=== PATIENT | male | born 1970 | race Caucasian/White ===

== ENCOUNTER → 2017-02-20 | Outpatient (CLI) | payer OTHER ==
[~2017-02-20] MED LIST: SUCCINYLCHOLINE CHLORIDE 200 MG/10 ML VIAL IV PUSH ONE
== END ==
LOC: HEDF 06:09
DX: S01.81XA Laceration without foreign body of other part of head, initial encounter (principal); R41.82 Altered mental status, unspecified; V27.0XXA Motorcycle driver injured in collision with fixed or stationary object in nontraffic accident, initial encounter
CPT/HCPCS: A0431; A0436; J0330

== ENCOUNTER 2017-08-08 14:42 | Emergency (ER) | payer OTHER ==
[~2017-08-08] VITALS: Ht 180.3 cm; Wt 100.0 kg
[~2017-08-08 14:42] MED LIST changes: +AMAN100T PO; +LOSA25TA PO; +QUET1TAB10; +QUET1TAB8; +SENN8.6T19; -SUCCINYLCHOLINE CHLORIDE 200 MG/10 ML VIAL IV PUSH ONE
[2017-08-08 15:16] VITALS: BP 139/93; PULSE 85; RESP 18; TEMP 97.4; O2SAT 95
--- NOTE | 2017-08-08 15:41 | PD ---
HPI Chief Complaint: Psychiatric Symptoms Time Seen by Provider: 15:11 Travel History International Travel<30 days: No Contact w/Intl Traveler<30days: No Traveled to known affect area: No History of Present Illness HPI 46-year-old male presents under Hall act initiated by the [employer]. According to his paperwork the patient became upset and "lashed out" towards his and son after not being able to drive. For this reason he was placed under Hall act. The patient reports that he had an argument with his and someone called the police. He denies any desire to hurt himself or anyone else. He denies any psychiatric history. He denies any illicit drug use. He denies any alcohol use. He has no medical complaints at this time. [facility]LY [facility] Past Medical History Anxiety: No Depression: No Cancer: No Cardiovascular Problems: No Cerebrovascular Accident: No Diminished Hearing: No Endocrine: No Gastrointestinal Disorders: Yes Genitourinary: No Immune Disorder: No Musculoskeletal: No Neurologic: Yes Psychiatric: Yes Reproductive: No Respiratory: No Migraines: No Seizures: No Tetanus Vaccination: Unknown Influenza Vaccination: No Past Surgical History Appendectomy: Yes Other Surgery: No Social History Alcohol Use: No Tobacco Use: Yes (1 ppd) Substance Use: No (hx of debbie "a long time ago") Allergies-Medications (Allergen,Severity, Reaction): Coded Allergies: No Known Allergies (Unverified Adverse Reaction, Unknown, 06/22/17) Reported Meds & Prescriptions Reported Meds & Active Scripts Active Reported Amantadine (Amantadine HCl) 100 Mg Tab PO DAILY Quetiapine (Quetiapine Fumarate) 300 Mg Tab Quetiapine (Quetiapine Fumarate) 100 Mg Tab Losartan (Losartan Potassium) 25 Mg Tab 25 Mg PO DAILY Review of Systems Except as stated in HPI: all other systems reviewed are Neg Physical Exam Narrative GENERAL: Well-developed well-nourished male in no acute distress SKIN: Warm and dry. HEAD: Atraumatic. Normocephalic. EYES: Pupils equal and round. No scleral icterus. No injection or drainage. ENT: No nasal bleeding or discharge. Mucous membranes pink and moist. NECK: Trachea midline. No JVD. CARDIOVASCULAR: Regular rate and rhythm. No murmur appreciated. RESPIRATORY: No accessory muscle use. Clear to auscultation. Breath sounds equal bilaterally. GASTROINTESTINAL: Abdomen soft, non-tender, nondistended. Hepatic and splenic margins not palpable. MUSCULOSKELETAL: No obvious deformities. No clubbing. No cyanosis. No edema. NEUROLOGICAL: Awake and alert. No obvious cranial nerve deficits. Motor grossly within normal limits. Normal speech. PSYCHIATRIC: Appropriate mood and affect; insight and judgment normal. Data Data Last Documented VS Vital Signs Date Time Temp Pulse Resp B/P (MAP) Pulse Ox O2 Delivery O2 Flow Rate FiO2 08/08/17 15:16 97.4 85 18 139/93 (108) 95 Room Air Orders Orders Complete Blood Count With Diff (08/08/17 15:06) Comprehensive Metabolic Panel (08/08/17 15:06) Psych Screen (08/08/17 15:06) Drug Screen, Random Urine (08/08/17 15:06) Diet Regular Basic (08/08/17 Dinner) Ed Discharge Order (08/08/17 16:38) Labs Laboratory Tests Test 08/08/17 14:50 White Blood Count 11.1 TH/MM3 Red Blood Count 6.23 MIL/MM3 Hemoglobin 19.0 GM/DL Hematocrit 54.2 % Mean Corpuscular Volume 86.9 FL Mean Corpuscular Hemoglobin 30.6 PG Mean Corpuscular Hemoglobin Concent 35.2 % Red Cell Distribution Width 14.1 % Platelet Count 251 TH/MM3 Mean Platelet Volume 7.4 FL Neutrophils (%) (Auto) 73.5 % Lymphocytes (%) (Auto) 17.2 % Monocytes (%) (Auto) 6.4 % Eosinophils (%) (Auto) 2.1 % Basophils (%) (Auto) 0.8 % Neutrophils # (Auto) 8.2 TH/MM3 Lymphocytes # (Auto) 1.9 TH/MM3 Monocytes # (Auto) 0.7 TH/MM3 Eosinophils # (Auto) 0.2 TH/MM3 Basophils # (Auto) 0.1 TH/MM3 CBC Comment DIFF FINAL Differential Comment MDM Medical Decision Making Medical Screen Exam Complete: Yes Emergency Medical Condition: Yes Medical Record Reviewed: Yes Differential Diagnosis Social disturbance, acute psychosis, adjustment reaction, substance induced mood disorder Narrative Course 46-year-old male presents under Hall act for psychiatric evaluation. Mental health screening discussed with the patient. Psychiatric screen ordered. The Hall act was lifted by the psychiatrist. He has no medical issues none warrant additional hospitalization. He is stable for discharge. Diagnosis Primary Impression: Medical clearance for psychiatric admission Med/Other Pt SpecificInfo: No Change to Meds Disposition: 01 DISCHARGE HOME Condition: Stable Tulio Rosario Aug 08, 2017 15:41
[2017-08-08 16:12] LABS: AUTOMATED NEUTROPHIL # 8.2 TH/MM3 (1.8-7.7); BASOPHIL # 0.1 TH/MM3 (0-0.2); BASOPHIL % 0.8 % (0.0-2.0); EOSINOPHIL # 0.2 TH/MM3 (0-0.4); EOSINOPHIL % 2.1 % (0.0-4.0); HEMATOCRIT 54.2 % (39.0-51.0); LYMPH % 17.2 % (9.0-44.0); LYMPHOCYTE # 1.9 TH/MM3 (1.0-4.8); MEAN CELL VOLUME 86.9 FL (80.0-100.0); MEAN CORPUSCULAR HEMOGLOBIN 30.6 PG (27.0-34.0); MEAN CORPUSCULAR HGB CONC 35.2 % (32.0-36.0); MEAN PLATELET VOLUME 7.4 FL (7.0-11.0); MONO % 6.4 % (0.0-8.0); MONOCYTE # 0.7 TH/MM3 (0-0.9); NEUT % 73.5 % (16.0-70.0); PLATELET COUNT 251 TH/MM3 (150-450); RED BLOOD COUNT 6.23 MIL/MM3 (4.50-5.90); RED CELL DISTRIBUTION WIDTH 14.1 % (11.6-17.2); WHITE BLOOD COUNT 11.1 TH/MM3 (4.0-11.0)
[2017-08-08 16:39] LABS: ALBUMIN 4.1 GM/DL (3.4-5.0); AST (GOT) 17 U/L (15-37); BLOOD UREA NITROGEN 15 MG/DL (7-18); CALCIUM 9.2 MG/DL (8.5-10.1); CHLORIDE 106 MEQ/L (98-107); GLOMERULAR FILTRATION RATE 65 ML/MIN (>89); GLUCOSE,RANDOM 103 MG/DL (74-106); SODIUM (NA) 137 MEQ/L (136-145)
--- NOTE | 2017-08-08 16:39 | PD ---
History of Present Illness Chief Complaint: Psychiatric Symptoms Time Seen by Provider: 16:30 Travel History International Travel<30 Days: No Contact w/Intl Traveler<30days: No Known affected area: No Legal Status Legal Status: Hall Act Hall Act Signed By: Lito Rowland History of Present Illness: 46-year-old male seen under a Hall act for what appears to be an inadequate reason. Patient is calm and pleasant. He denies any suicidal or homicidal ideation, plan or intent. He has no psychotic symptoms and his cognition is baseline. 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 PFSH Past Medical History Anxiety: No Depression: No Cancer: No Cardiovascular Problems: No Cerebrovascular Accident: No Diminished Hearing: No Endocrine: No Gastrointestinal Disorders: Yes Genitourinary: No Immune Disorder: No Musculoskeletal: No Neurologic: Yes Psychiatric: Yes Reproductive: No Respiratory: No Migraines: No Seizures: No Tetanus Vaccination: Unknown Influenza Vaccination: No Past Surgical History Appendectomy: Yes Other Surgery: No Psychiatric History Psychiatric History Hx Psychiatric Treatment: Denied. History of Inpatient Treatment: No Guns or firearms in home: No Social History Hx Alcohol Use: No Hx Tobacco Use: Yes (1 ppd) Hx Substance Use: No (hx of debbie "a long time ago") Hx of Substance Use Treatment: No Allergies-Medications (Allergen,Severity, Reaction): Coded Allergies: No Known Allergies (Unverified Adverse Reaction, Unknown, 06/22/17) Reported Meds & Prescriptions Reported Meds & Active Scripts Active Reported Amantadine (Amantadine HCl) 100 Mg Tab PO DAILY Quetiapine (Quetiapine Fumarate) 300 Mg Tab Quetiapine (Quetiapine Fumarate) 100 Mg Tab Losartan (Losartan Potassium) 25 Mg Tab 25 Mg PO DAILY Review of Systems Except as stated in HPI: all other systems reviewed are Neg Mental Status Examination Appearance: Appropriate Consciousness: Alert Orientation: x4 Motor Activity: Normal gait Speech: Speech impediment Language: Adequate Fund of Knowledge: Adequate Attention and Concentration: Adequate Memory: Unremarkable Mood: Appropriate Affect: Appropriate Thought Process & Associations: Intact Thought Content: Appropriate Hallucination Type: None Delusion Type: None Suicidal Ideation: No Suicidal Plan: No Suicidal Intention: No Homicidal Ideation: No Homicidal Plan: No Homicidal Intention: No Insight: Adequate Judgment: Adequate MDM Medical Decision Making Medical Record Reviewed: Yes Assessment/Plan Patient interviewed it bedside. Electronic medical record reviewed. Case discussed with nurse Becky. Patient is not felt to meet Hall act criteria. He does not meet criteria for involuntary psychiatric hospitalization and he would like to go home. He remarks "I've never been in trouble in my life!" Orders Orders Complete Blood Count With Diff (08/08/17 15:06) Comprehensive Metabolic Panel (08/08/17 15:06) Psych Screen (08/08/17 15:06) Drug Screen, Random Urine (08/08/17 15:06) Diet Regular Basic (08/08/17 Dinner) Results Vital Signs Date Time Temp Pulse Resp B/P (MAP) Pulse Ox O2 Delivery O2 Flow Rate FiO2 08/08/17 15:16 97.4 85 18 139/93 (108) 95 Room Air Laboratory Tests Test 08/08/17 14:50 White Blood Count 11.1 Red Blood Count 6.23 Hemoglobin 19.0 Hematocrit 54.2 Mean Corpuscular Volume 86.9 Mean Corpuscular Hemoglobin 30.6 Mean Corpuscular Hemoglobin Concent 35.2 Red Cell Distribution Width 14.1 Platelet Count 251 Mean Platelet Volume 7.4 Neutrophils (%) (Auto) 73.5 Lymphocytes (%) (Auto) 17.2 Monocytes (%) (Auto) 6.4 Eosinophils (%) (Auto) 2.1 Basophils (%) (Auto) 0.8 Neutrophils # (Auto) 8.2 Lymphocytes # (Auto) 1.9 Monocytes # (Auto) 0.7 Eosinophils # (Auto) 0.2 Basophils # (Auto) 0.1 CBC Comment DIFF FINAL Differential Comment Diagnosis Primary Impression: Adjustment disorder with mixed disturbance of emotions and conduct Nathan Goldberg MD Aug 08, 2017 16:39
[2017-08-08 16:40] LABS: ALT (GPT) 33 U/L (12-78)
[2017-08-08 16:42] LABS: ALKALINE PHOSPHATASE 149 U/L (45-117); TOTAL BILIRUBIN ADULT 0.4 MG/DL (0.2-1.0); TOTAL PROTEIN 7.9 GM/DL (6.4-8.2)
== END 2017-08-08 16:55 | disposition home or self-care (01) ==
LOC: NEPJ 14:42
DX: F43.25 Adjustment disorder with mixed disturbance of emotions and conduct (principal); F17.200 Nicotine dependence, unspecified, uncomplicated
CPT/HCPCS: 80053; 85025; 99283